=== PATIENT | female | born 1955 | race Caucasian/White ===

== ENCOUNTER 2023-03-16 09:35 | Outpatient (CLI) | payer MEDICARE, SELFPAY ==
[2023-03-16 12:51] LABS: Alanine Aminotransferase 18 U/L (6-35); Albumin Level 4.6 g/dL (3.5-5.1); Alkaline Phosphatase 98 U/L (38-126); Anion Gap 9 mmol/L (8-16); Aspartate Amino Transferase 34 U/L (14-36); Bilirubin,Total 0.9 mg/dL (0.2-1.3); Blood Urea Nitrogen 19 mg/dL (7-17); Calcium 9.2 mg/dL (8.4-10.2); Carbon Dioxide 29 mmol/L (22-30); Chloride 97 mmol/L (98-107); Cholesterol 216 mg/dL (0-200); Estimated Glomerular Filt Rate > 60; Glucose 87 mg/dL (65-110); HDL Direct 49 mg/dL; Potassium 4.1 mmol/L (3.4-5.0); Sodium 135 mmol/L (137-145); Triglycerides 193 mg/dL (<150)
[2023-03-16 13:02] LABS: LDL Cholesterol Direct 110 mg/dL
== END 2023-03-16 09:36 | disposition home or self-care (01) ==
LOC: ANHGOSHLAB 09:37
PROVIDERS: PCP Family Medicine; Visit Provider Family Medicine
DX: E78.5 Hyperlipidemia, unspecified (principal); I10 Essential (primary) hypertension; Z13.29 Encounter for screening for other suspected endocrine disorder
CPT/HCPCS: 36415; 80053; 80061; 84443

== ENCOUNTER → 2023-10-11 10:53 | Outpatient (CLI) | payer MEDICARE, SELFPAY ==
--- NOTE | ~2023-10-11 | DEXA_ITS ---
Bone Density Report Name: ABDI PONCE Age: 67 Sex: Female Ethnicity: White Date of : 1955 Indication: osteopenia; height loss; postmenopausal Referring Provider: LAUREN MARTINEZ Study: Bone densitometry was performed. Exam Date: October 11, 2023 Accession number: [id number] Bone Density: Region BMD T-score Z-score Classification AP Spine (L1-L4) 0.877 -1.5 0.4 Osteopenia Femoral Neck (Left) 0.666 -1.6 0.0 Osteopenia Total Hip (Left) 0.769 -1.4 0.0 Osteopenia Femoral Neck (Right) 0.588 -2.4 -0.7 Osteopenia Total Hip (Right) 0.758 -1.5 -0.1 Osteopenia Total Hip Mean 0.764 -1.5 -0.1 Osteopenia World Health Organization criteria for BMD impression classify patients as: Normal (T-score at or above -1.0), Osteopenia (T-score between -1.0 and -2.5), or Osteoporosis (T-score at or below -2.5). 10-year Fracture Risk(1): Major Osteoporotic Fracture 13% Hip Fracture 2.7% Reported Risk Factors: [place] (), Neck BMD=0.588, BMI=26.5 (1) FRAX(R) Version 3.08. Fracture probability calculated for an untreated patient. Fracture probability may be lower if the patient has received treatment. Previous Exams: Region Exam Age BMD T-score BMD Change BMD Change Date g/cm2 vs Baseline vs Previous AP Spine(L1-L4) 10/11/2023 67 0.877 -1.5 0.019 0.019 06/05/2019 63 0.858 -1.7 Total Hip(Left) 10/11/2023 67 0.769 -1.4 -0.028* -0.028* 06/05/2019 63 0.798 -1.2 Total Hip(Right) 10/11/2023 67 0.758 -1.5 0.002 0.002 06/05/2019 63 0.757 -1.5 *Denotes significance at 95% confidence level, LSC for AP Spine = 0.022 g/cm2, LSC for Total Hip = 0.027 g/cm2 Clinical Information Provided by Patient: Has used the following medications: Calcium Patient maximum height was 61 Menopause Age: 50 No regular weight bearing exercise Does not regularly consume dairy products Drinks caffeinated beverages Onset of menses at age 15 Number of children 2 Impression: The patient has low bone mass, based on the Right Femoral Neck T-score. The patient has an estimated ten-year risk of hip fracture of 2.7% and an estimated ten-year risk of major fracture of 13%, based on the WHO FRAX algorithm. The BMD for the Total Hip(Left) decreased, changing by -0.028 since the last DXA exam. Discussion: BONE DENSITY IS LOW AT ONE OR MORE SKELETAL SITES. This patient's lowest T-score is low at one or more skele
== END ==
PROVIDERS: PCP Family Medicine; Visit Provider Family Medicine
DX: Z78.0 Asymptomatic menopausal state (principal); Z13.820 Encounter for screening for osteoporosis; M85.88 Other specified disorders of bone density and structure, other site; M85.852 Other specified disorders of bone density and structure, left thigh; M85.851 Other specified disorders of bone density and structure, right thigh
CPT/HCPCS: 77080

== ENCOUNTER 2024-03-14 08:30 | Outpatient (CLI) | payer MEDICARE, SELFPAY ==
[2024-03-15 00:17] LABS: Alanine Aminotransferase 18 U/L (6-35); Albumin Level 4.4 g/dL (3.5-5.1); Alkaline Phosphatase 86 U/L (38-126); Anion Gap 6 mmol/L (4-12); Aspartate Amino Transferase 28 U/L (14-36); Bilirubin,Total 0.7 mg/dL (0.2-1.3); Blood Urea Nitrogen 16 mg/dL (7-17); Calcium 8.7 mg/dL (8.4-10.2); Carbon Dioxide 27 mmol/L (22-30); Chloride 101 mmol/L (98-107); Cholesterol 189 mg/dL (0-200); Estimated Glomerular Filt Rate 55; Glucose 94 mg/dL (65-110); HDL Direct 45 mg/dL; Potassium 3.9 mmol/L (3.4-5.0); Sodium 134 mmol/L (137-145); Triglycerides 194 mg/dL (<150)
[2024-03-15 00:45] LABS: LDL Cholesterol Direct 101 mg/dL
== END 2024-03-14 08:31 | disposition home or self-care (01) ==
LOC: ANHGOSHLAB 08:31
PROVIDERS: PCP Family Medicine; Visit Provider Family Medicine
DX: E78.49 Other hyperlipidemia (principal); Z13.228 Encounter for screening for other metabolic disorders
CPT/HCPCS: 36415; 80053; 80061

== ENCOUNTER 2025-02-28 09:34 | Outpatient (CLI) | payer MEDICARE, SELFPAY ==
--- OUTSIDE RECORDS SUMMARY | 2025-02-28 09:39 | XMS_ITS | Clinical Summary ---
Author Organization [facility] Medical Office Building [address] [place] [id number] Care Team Providers Care Scow Hand Name Role Phone Jayden Lacy MD Unavailable Baudilio Blum MD Unavailable [phone] Amber Mehta MD Primary Care Provider [phone] Allergies No known active allergies Medications lisinopriL (PRINIVIL,ZESTRIL) 10 mg tabletIndications: hypertension Take 10 mg by mouth every morning 2 Active lovastatin (MEVACOR) 20 mg tabletIndications: hyperlipidemia Take 20 mg by mouth every morning 2 Active prednisoLONE acetate (PRED FORTE) 1 % ophthalmic suspension For upcoming procedure 3 Active hydroCHLOROthiazid e (HYDRODIURIL) 25 mg tabletIndications: Edema,hypertension Take 25 mg by mouth every morning Active aspirin 81 mg chewable tabletIndications: prevention of thrombosis Take 81 mg by mouth every other day Active olopatadine (PATADAY) 0.2 % ophthalmic solutionIndication s:Allergic Conjunctivitis Administer 1 drop into both eyes daily Active carboxymethylcellu lose (REFRESH LIQUIGEL) 1 % ophthalmic liquid gel drops Administer 1 drop into both eyes Active erythromycin (ILOTYCIN) ophthalmic ointment Place on incisions three times per day and in operative eye as needed. 3.5 g 3 3 Active Active Problems Problem Noted Date Diagnosed Date Loss of peripheral visual field, bilateral 11/17 Overview (11/17/2022): Added automatically from request for surgery [id number] Dermatochalasis of both upper eyelids 11/17/2022 Overview (11/17/2022): Added automatically from request for surgery [id number] Encounters Date Type Department Care Team Description 12/06/2024 11:41 AM LAMINATING MACHINE OPERATOR HELPER - 12/06/2024 11:59 PM LAMINATING MACHINE OPERATOR HELPER Hospital Encounter [facility] Medical Office Bldg 1 [facility] [address] [facility] [address] [place] [address] Screening mammogram, encounter for Discharge Disposition: Discharge to home or self care from Last 3 Months Surgical History Surgery Date Site/Laterality Comments SECTION 1983 & 1989 COLONOSCOPY 10/09/2021 - 10/08/2022 Medical History Medical History Date Comments Hypertension Dxd 2007 Hyperlipidemia Treated with sta tin Family History Medical History Relation Name Comments Anesthesia problems Neg Hx Social History Tobacco Use Types Packs/Day Years Used Date Smoking Tobacco: Never Smokeless Tobacco: Never Tobacco Cessation:Counseling Given: Not Answered AUDIT-C Answer Date Recorded Q1: How often do you have a drink containing alc ohol? 2-3 times a week 12/09/2022 Q2: How many drinks containi ng alcohol do you have on a typical day when you are drinking? 3 or 4 12/09/2022 Q3: How often do you have si x or more drinks on one occasion? Monthly 12/09/2022 Personal Safety Answer Date Recorded Getting School Help Needed Denies 10/05 Comments No Sex and Gender Information Value Date Recorded Sex Assigned at Not on file Legal Sex Female 7:01 PM LAMINATING MACHINE OPERATOR HELPER Gender Identity Not on file Sexual Orientation Not on file Obstetrics History Para Term AB IAB SAB Ectopic Multiple Livin g Live Births 2 2 2 Date Outcome GA Total Labor Labor/2nd/3rd Weight Sex Type Anes PTL Agustina A1 A5 Name Clin Term Term Last Filed Vital Signs Vital Sign Reading Time Taken Comments Blood Pressure 131/65 12/09/2022 12:15 PM LAMINATING MACHINE OPERATOR HELPER Pulse 75 12/09/2022 12:15 PM LAMINATING MACHINE OPERATOR HELPER Temperature 36.2 C (97.2 F) 12/09/2022 11:30 AM LAMINATING MACHINE OPERATOR HELPER Respiratory Rate 32 12/09/2022 12:15 PM LAMINATING MACHINE OPERATOR HELPER Oxygen Saturation 100% 12/09/2022 12:15 PM LAMINATING MACHINE OPERATOR HELPER Inhaled Oxygen Concentration - - Weight 59 kg (130 lb) 11/18/2022 9:20 AM LAMINATING MACHINE OPERATOR HELPER Height 152.4 cm (5') 11/18/2022 9:20 AM LAMINATING MACHINE OPERATOR HELPER Body Mass Index 25.39 11/18/2022 9:20 AM LAMINATING MACHINE OPERATOR HELPER Plan of Treatment Health Maintenance Due Date Last Done Comments Colon Cancer Screening-Colonoscopy 1955 Depression Screening 1955 Hepatitis C Screening 1955 Osteoporosis Screening-Bone Density Scan 1955 Hepatitis B Screening 12/12/1973 Well Visit 65+ 12/12/2020 Fall Risk Assessment 12/10/2023 12/09/2022 Covid-19 Vaccine (2023-2 5 season) 2024 06/28/2023, 07/11/2022, 02/15/2022, Additional history exists Influenza Vaccine (Season Ended) 2025 06/30/2023, 07/11/2022, 07/12/2021, Additional history exists Breast Cancer Screening-Mammogram 12/06/2025 12/06/2024, 10/12/2023, 10/11/2022, Additional history exists DTaP/Tdap/Td Vaccine (2 - Td or Tdap) 04/26/2033 04/26/2023 Zoster Vaccine Completed 10/21/2019, 07/19/2019 Pneumococcal vaccine 65+ Completed 10/17/2022, 01/2021 Procedures Procedure Name Priority Date/Time Associated Diagnosis Comments SCREENING MAMMOGRAM BILATERAL W VIC Schedule Routine, Read Routine (OP Routine) 12/06/2024 12:07 PM LAMINATING MACHINE OPERATOR HELPER Screening mammogram, encounter for from Last 3 Months Results * Screening Mammogram Bilateral W Vic (12/06/2024 12:07 PM LAMINATING MACHINE OPERATOR HELPER) Anatomical Region Laterality Modality Breast Bilateral Mammography Impressions 12/06/2024 12:37 PM LAMINATING MACHINE OPERATOR HELPER BI-RADS ATLAS category (overall): 1 - Negative There is no mammographic evidence of malignancy. A 1 year screening mammogram is recommended. The patient has been or will be contacted. We recommend annual screening mammography for women at average risk of breast cancer beginning at age 40, based on guidelines of the [place] [employer] (ACR Practice Parameter for the Performance of Screening and Diagnostic Mammography) and [employer]. For women with and elevated risk of breast cancer, please refer to the ACR Practice Parameter for specific screening recommendations. The patient will be entered into a reminder system with a target due date of 1 year for her next screening exam. Narrative 12/06/2024 12:37 PM LAMINATING MACHINE OPERATOR HELPER Screening Mammogram Bilateral W Vic: 12/06/24 The study was acquired using full field digital technology and interpreted from soft copy. 2D digital mammographic views, as well as 3D digital tomosynthesis were performed in the CC and MLO projections. CLINICAL: Screening mammogram, encounter for. No relevant medical history has been documented for this patient. No known family history of breast cancer. COMPARISONS: 10/12/2023 Screening Mammogram Bilateral W Vic 10/11/2022 Screening Mammogram Bilateral W Vic 07/13/2021 Screening Mammogram Bilateral W Vic BREAST TISSUE: The breasts are heterogeneously dense, which may obscure small masses. FINDINGS: No suspicious masses, suspicious calcifications, or other suspicious findings are seen within either breast. There has been no suspicious change. us Self Screening Mammogram IMG MAMMO PROCEDURES Fi nal Result from Last 3 Months Insurance MEDICARE [facility] MEDICARE [facility] Care Teams Scow Hand Relationship Specialty Start Date End Date Amber Mehta MD [address] [place] [address] PCP - General Family Medicine 10/10/24 Jayden Lacy MD [address] [place] [address] Referring Physician Obstetrics and Gynecology 10/11/22 Baudilio Blum MD [address] DEPT OPHTHALMOLOGY, [place] [address] Surgeon Ophthalmology 12/09/22
--- OUTSIDE RECORDS SUMMARY | 2025-02-28 09:39 | XMS_ITS | Encounter Summary ---
Author Organization [facility] Address [address] [facility] [place] [address] Care Team Providers Care Director Of Software Engineering Name Role Phone Unavailable Primary Care Provider Unavailabl e Encounter Details Date Type Department Care Team (Late st Contact Info) Description 08/26/2024 Lab Requisition [facility] - DermPath Lab [address] [facility] [place] [phone] Cristela Cortez DO [address] [facility] [address] [place] [address] Social History Tobacco Use Types Packs/Day Years Used Date Smoking Tobacco: Never Assessed Comments Unknown Sex and Gender Information Value Date Recorded Sex Assigned at Not on file Legal Sex Female 10:07 AM CDT Gender Identity Not on file Sexual Orientation Not on file documented as of this encounter Plan of Treatment Not on file documented as of this encounter Procedures Procedure Name Priority Date/Time Associated Diagnosis Comments DERMATOPATHOLOGY Routine 08/26/2024 8:55 AM GOLF ST[employer]TER AND RANGER documented in this encounter Results * DERMATOPATHOLOGY (08/26/2024 8:55 AM [employer]OLF [employer]TER AND RANGER) Case Report Dermatopathology Report Case: [id number] Authorizing Provider: Cristela Cortez DO Collected: 08/26/2024 08:55 AM Ordering Location: [facility] - Received: 08/26/2024 03:28 PM DermPath Lab Pathologist: Vivi Rodriguez MD Specimen: Skin, right upper back 12:36 PM [facility] DERMATOPATHOLOGY LABORATORY Final Diagnosis Specimen A. SKIN, right upper back: LICHEN PLANUS-LIKE KERATOSIS (BENIGN LICHENOID KERATOSIS) (L82.1) 12:36 PM [facility] DERMATOPATHOLOGY LABORATORY at [address] [facility] Clinical History R/O NMSC 12:36 PM [facility] DERMATOPATHOLOGY LABORATORY Gross Description Specimen A: Received is one formalin filled container labeled with the patient's name and designated right upper back. The specimen consists of a shave biopsy measuring 6x5x1 mm. Jar 0. 12:36 PM [facility] DERMATOPATHOLOGY LABORATORY Microscopic Description Specimen A. SKIN, right upper back: The epidermis is mildly acanthotic. There is a lichenoid infiltrate with vacuolar changes of basilar keratinocytes and scattered necrotic keratinocytes. 12:36 PM [facility] DERMATOPATHOLOGY LABORATORY Disclaimer An external and internal positive and negative controls are appropriate for the histochemical, immunohistochemical and immunofluorescence stain(s) in this case (if any), except where stated explicitly. The performance characteristics of the stain(s) cited in this report were developed and its performance characteristic determined by the Dermatopathology Laboratory at [facility], directed by Dr. Juana Keen. These tests need not be, and therefore are not, approved by the [place] Food and Drug Administration. The tests are used for clinical purposes. Billing Codes Specimen Charges Stain Charges 80606 1 12:36 PM [facility] DERMATOPATHOLOGY LABORATORY Embedded Images 12:36 PM [facility] DERMATOPATHOLOGY LABORATORY Pathology/Cytolo gy TISSUE SPECIMEN FROM SKIN / Unknown 08/26/2024 8:55 AM [employer] 08/26/2024 3:28 PM [employer] Cristela Cortez DO LAB - PATHOLOGY/CYTOLOGY ORDERABLES Final Result DERMATOPATHOLOGY LABORATORY [facility] - Department of Dermatology [address] [place] [address], [facility] [phone] documented in this encounter Visit Diagnoses Not on filedocumented in this encounter
--- OUTSIDE RECORDS SUMMARY | 2025-02-28 09:39 | XMS_ITS | Referral Summary ---
Author Organization [facility] Medical Office Building 1 Address [facility] [place] [address] Care Team Providers Care Social Security Assessor Name Role Phone Jayden Lacy MD Unavailable Baudilio Blum MD Unavailable Amber Mehta MD Primary Care Provider [phone] Encounters Date Type Department Care Team Description 12/06/2024 11:41 AM PIPELINES SUPERINTENDENT - 12/06/2024 11:59 PM [facility] Hospital Encounter [facility] Medical Office Bldg 1 [facility] [address] [address] Screening mammogram, encounter for Discharge Disposition: Discharge to home or self care from Last 3 Months Allergies No known active allergies Medications lisinopriL [...] (11/17/2022): Added automatically from request for surgery [id number] Dermatochalasis of both upper eyelids 11/17/2022 Overview (11/17/2022): Added automatically from request for surgery [id number] Social History Tobacco Use Types Packs/Day Years [...] on file Legal Sex Female 7:01 PM PIPELINES SUPERINTENDENT Gender Identity Not on file Sexual Orientation Not on file Last Filed Vital Signs Vital Sign Reading Time Taken Comments Blood Pressure 131/65 12/09/2022 12:15 PM PIPELINES SUPERINTENDENT Pulse 75 12/09/2022 12:15 PM PIPELINES SUPERINTENDENT Temperature 36.2 C (97.2 F) 12/09/2022 11:30 AM PIPELINES SUPERINTENDENT Respiratory Rate 32 12/09/2022 12:15 PM PIPELINES SUPERINTENDENT Oxygen Saturation 100% 12/09/2022 12:15 PM PIPELINES SUPERINTENDENT Inhaled Oxygen Concentration - - Weight 59 kg (130 lb) 11/18/2022 9:20 AM PIPELINES SUPERINTENDENT Height 152.4 cm (5') 11/18/2022 9:20 AM PIPELINES SUPERINTENDENT Body Mass Index 25.39 11/18/2022 9:20 AM PIPELINES SUPERINTENDENT Plan of Treatment Not on file Procedures Procedure Name Priority Date/Time Associated Diagnosis Comments SCREENING MAMMOGRAM BILATERAL W VIC Schedule Routine, Read Routine (OP Routine) 12/06/2024 12:07 PM PIPELINES SUPERINTENDENT Screening mammogram, encounter for from Last 3 Months Results * Screening Mammogram Bilateral W Vic (12/06/2024 12:07 PM PIPELINES SUPERINTENDENT) Anatomical Region Laterality Modality Breast Bilateral Mammography Impressions 12/06/2024 12:37 PM PIPELINES SUPERINTENDENT BI-RADS ATLAS category (overall): 1 - Negative There is no mammographic evidence of malignancy. A 1 year screening mammogram is recommended. The patient has been or will be contacted. We recommend annual screening mammography for women at average risk of breast cancer beginning at age 40, based on guidelines of the [employer] (ACR Practice Parameter for the Performance of Screening and Diagnostic Mammography) and [employer]. For women with and elevated risk of breast cancer, please refer to the ACR Practice Parameter for specific screening recommendations. The patient will be entered into a reminder system with a target due date of 1 year for her next screening exam. Narrative 12/06/2024 12:37 PM PIPELINES SUPERINTENDENT Screening Mammogram Bilateral W Vic: 12/06/24 The [...] Result from Last 3 Months Insurance MEDICARE [facility] MEDICARE [facility] Care Teams Social Security Assessor Relationship Specialty Start Date End Date Amber Mehta MD [address] [place] [address] PCP - General Family Medicine 10/10/24 Jayden Lacy MD [address] [facility] [address] [place] [address] Referring Physician Obstetrics and Gynecology 10/11/22 Baudilio Blum MD [address] [facility] [address] DEPT OPHTHALMOLOGY, [facility] [address] [place] [address] Surgeon Ophthalmology 12/09/22
--- OUTSIDE RECORDS SUMMARY | 2025-02-28 09:39 | XMS_ITS | Clinical Summary ---
Author Organization [facility] Care Team Providers Care Hoop Punch Operator Helper Name Role Phone Unavailable Primary Care Provider Unavailabl e Social History Tobacco Use Types Packs/Day Years Used Date Smoking Tobacco: Never Assessed Comments Unknown Sex and Gender Information Value Date Recorded Sex Assigned at Not on file Legal Sex Female 11:52 AM CDT Gender Identity Not on file Sexual Orientation Not on file Plan of Treatment Health Maintenance Due Date Last Done Comments DEXA Bone Density 1955 Hepatitis C Virus (HCV) Screening 1955 TdaP Immunization 1955 Colonoscopy 12/12/2000 Colorectal Cancer Screening 12/12/2000 Cologuard 12/12/2005 Immunochemical Fecal Occult Blood 12/12/2005 Mammogram 12/12/2005 Pneumococcal Immunization (50+ years) (1 of 1 - PCV) 12/12/2005 Influenza Immunization (#1) 06/09/202404/2020, 07/19/2019, 07/24/2018, Additional history exists SARS-COV-2 Immunization ( season) 2024 12/30/2020, 12/02/2020 Respiratory Syncytial Virus (RSV) Immunization (Adult) (1 - 1-dose 75+ series) 12/12/2030 Zoster Immunization Completed 10/21/2019, 9 Hepatitis B Immunization Aged Out No longer eligible based on patient's age to complete this topic Meningococcal Immunization (ACWY) Aged Out No longer eligible based on patient's age to complete this topic Rotavirus Immunization Aged Out No lo nger eligible based on patient's age to complete this topic
--- OUTSIDE RECORDS SUMMARY | 2025-02-28 09:39 | XMS_ITS | Encounter Summary ---
Author Organization [facility] Address [address] [place] [address] Care Team Providers Care Emergency Technician Name Role Phone Unavailable Primary Care Provider Unavailabl e Encounter Details Date Type Department Care Team (Late st Contact Info) Description 08/10/2023 Lab Requisition [facility] - DermPath Lab [address] [facility] [facility] [place] [address] Cristela Cortez DO [address] [facility] [address] [place] [address] Social History Tobacco Use Types Packs/Day Years [...] Priority Date/Time Associated Diagnosis Comments DERMATOPATHOLOGY Routine 08/10/2023 9:15 AM CDT documented in this encounter Results * DERMATOPATHOLOGY (08/10/2023 9:15 AM CDT) Case Report Dermatopathology Report Case: [id number] Authorizing Provider: Cristela Cortez DO Collected: 08/10/2023 09:15 AM Ordering Location: [facility] DermPath Lab Received: 08/11/2023 01:24 PM Pathologist: Vielka Sepulveda MD Specimen: Skin, right chest 3 1:06 PM [facility] DERMATOPATHOLOGY LABORATORY Final Diagnosis Specimen A. SKIN, right chest: LICHEN PLANUS-LIKE KERATOSIS (BENIGN LICHENOID KERATOSIS) (L82.1) EPIDERMAL NECROSIS SUGGESTIVE OF EXCORIATION (L98.499) 3 1:06 PM [facility] DERMATOPATHOLOGY LABORATORY at [address] [facility] Clinical History LpLK R/O NMSC 3 1:06 PM [facility] DERMATOPATHOLOGY LABORATORY Gross Description Specimen A: Received is one formalin filled container labeled with the patient's name and designated right chest. The specimen consists of a shave biopsy measuring 6x5x1 mm. Jar 0. 3 1:06 PM [facility] DERMATOPATHOLOGY LABORATORY Microscopic Description Specimen A. SKIN, right chest: The epidermis is mildly acanthotic. There is a lichenoid infiltrate with vacuolar changes of basilar keratinocytes and scattered necrotic keratinocytes. The epidermis is focally necrotic and covered with a scale-crust. There is fibrin at the base. 3 1:06 PM [facility] DERMATOPATHOLOGY LABORATORY Disclaimer An external and internal positive and negative controls are appropriate for the histochemical, immunohistochemical and immunofluorescence stain(s) in this case (if any), except where stated explicitly. The performance characteristics of the stain(s) cited in this report were developed and its performance characteristic determined by the Dermatopathology Laboratory at [facility], directed by Dr. Juana Keen. These tests need not be, and therefore are not, approved by the [place] Food and Drug Administration. The tests are used for clinical purposes. Billing Codes Specimen Charges Stain Charges 33833 1 3 1:06 PM [facility] DERMATOPATHOLOGY LABORATORY Embedded Images 3 1:06 PM [facility] DERMATOPATHOLOGY LABORATORY Pathology/Cytolo gy TISSUE SPECIMEN FROM SKIN / Unknown 08/10/2023 9:15 AM CDT 08/11/2023 1:24 PM CDT us Cristela Cortez DO LAB - PATHOLOGY/CYTOLOGY ORDERABLES Final Result DERMATOPATHOLOGY LABORATORY [facility] - Department of Dermatology [address], [address] [phone] documented in this encounter Visit Diagnoses Not on filedocumented in this encounter
--- OUTSIDE RECORDS SUMMARY | 2025-02-28 09:39 | XMS_ITS | Clinical Summary ---
Author Organization [facility] Address [address] [facility] [place] [address] Care Team Providers Care Campaign Management Senior Manager Name Role Phone Unavailable Primary Care Provider Unavailabl e Source Comments [facility],non-owned Affiliates and Associated Physician Practices is amultiple site organization consisting of ambulatory clinics and hospital sitesin [place], [place], [place] and [place]. This disclosure is being madepursuant to the Care Everywhere program and may not contain all information available regarding this patient. Last updated 18.[facility] Encounters Date Type Department Care Team Description 02/25/2025 Lab Requisition [facility] - DermPath Lab [address] [place] [address] Cristela Cortez DO from Last 3 Months Social History Tobacco Use Types Packs/Day Years Used Date Smoking Tobacco: Never Assessed Comments Unknown Sex and Gender Information Value Date Recorded Sex Assigned at Not on file Legal Sex Female 10:07 AM CDT Gender Identity Not on file Sexual Orientation Not on file Plan of Treatment Health Maintenance Due Date Last Done Comments BONE DENSITY TESTING 1955 COLOGUARD (AGES 45-75) - COL ON CA SCREENING 1955 COLON MONITORING 1955 COLONOSCOPY - COLON CA SCREENING 1955 CT COLONOGRAPHY - COLON CA SCREENING 1955 Colorectal Cancer Screening 1955 FIT - COLON CA SCREENING 1955 FLEX SIG - COLON CA SCREENING 1955 LIPID TESTING 1955 MAMMOGRAM 1955 MEDICARE AWV 12 MONTHS 1955 HEPATITIS C SCREENING 12/08/1973 DTAP/TDAP/TD VACCINES (1 - Tdap) 12/12/1974 PNEUMOCOCCAL VACCINE 50+ (1 of 1 - PCV) 12/12/2005 ZOSTER VACCINE (1 of 2) 12/12/2005 COVID-19 VACCINE (2023-2 5 season) 2024 DEPRESSION SCREENING 10/09/2024 INFLUENZA VACCINE (Season Ended) 2025 Respiratory Syncytial Virus (RSV) Vaccine Pt: or over 60 yrs (1 - 1-dose 75+ series) 12/12/2030 HEPATITIS B VACCINE Aged Out No longe r eligible based on patient's age to complete this topic HIB VACCINE Aged Out No longer eligi ble based on patient's age to complete this topic HPV VACCINE Aged Out No longer eligi ble based on patient's age to complete this topic MENINGOCOCCAL (Group B) VACC INE SHARED DECISION-MAKING Aged Out No longer eligibl e based on patient's age to complete this topic MENINGOCOCCAL GROUPS A/C/Y/W VACCINE Aged Out No longer eligible b ased on patient's age to complete this topic Procedures Procedure Name Priority Date/Time Associated Diagnosis Comments DERMATOPATHOLOGY Routine 02/25/2025 9:07 AM CDT from Last 3 Months Results * DERMATOPATHOLOGY (02/25/2025 9:07 AM CDT) Case Report Dermatopathology Report Case: [id number] Authorizing Provider: Cristela Cortez DO Collected: 02/25/2025 09:07 AM Ordering Location: [facility] - Received: 02/26/2025 07:11 AM DermPath Lab Pathologist: Fadumo Sepulveda MD Specimen: Skin, left upper arm 3:34 PM CDT DERMATOPATHOLOGY LABORATORY Final Diagnosis Specimen A. 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 The specimen consists of a shave biopsy measuring 10x7x1 mm. Jar 0. 05/22/202 5 3:34 PM CDT DERMATOPATHOLOGY LABORATORY Microscopic Description Specimen A. SKIN, left upper arm: The epidermis shows parakeratosis, full thickness disorderly maturation of keratinocytes, mitoses at different levels, and dyskeratotic cells. 5 3:34 PM CDT DERMATOPATHOLOGY LABORATORY Disclaimer An external and internal positive and negative controls are appropriate for the histochemical, immunohistochemical and immunofluorescence stain(s) in this case (if any), except where stated explicitly. The performance characteristics of the stain(s) cited in this report were developed and its performance characteristic determined by the Dermatopathology Laboratory at [facility], directed by Dr. Juana Keen. These tests need not be, and therefore are not, approved by the [place] Food and Drug Administration. The tests are used for clinical purposes. Billing Codes Specimen Charges Stain Charges 25825 1 5 3:34 PM CDT DERMATOPATHOLOGY LABORATORY Embedded Images 5 3:34 PM CDT DERMATOPATHOLOGY LABORATORY Pathology/Cytolo gy TISSUE SPECIMEN FROM SKIN / Unknown 02/25/2025 9:07 AM CDT 02/26/2025 7:11 AM CDT us Cristela Cortez DO LAB - PATHOLOGY/CYTOLOGY ORDERABLES Final Result DERMATOPATHOLOGY LABORATORY [facility] - Department of Dermatology Formerly [facility] Medicine [address] [place] [address], [address]rd [place] [address], [facility] [phone] from Last 3 Months Insurance MEDICARE [facility] MEDICARE [facility]
--- OUTSIDE RECORDS SUMMARY | 2025-02-28 09:39 | XMS_ITS | Encounter Summary ---
Author Organization [facility] Address [address] [facility] [place] [address] Care Team Providers Care Boat Buffer Plastic Name Role Phone Unavailable Primary Care Provider Unavailabl e Encounter Details Date Type Department Care Team (Late st Contact Info) Description 02/25/2025 Lab Requisition [facility] - DermPath Lab [address] [facility], [facility] [place] [id number] Cristela Cortez DO [address] [facility] [address] [place] [address] Social History Tobacco Use Types Packs/Day Years [...] Comments DERMATOPATHOLOGY Routine 02/25/2025 9:07 AM CDT documented in this encounter Results * DERMATOPATHOLOGY (02/25/2025 9:07 AM CDT) Case Report Dermatopathology Report Case: [id number] Authorizing Provider: Cristela Cortez DO Collected: 02/25/2025 09:07 AM Ordering Location: [facility]ician [facility] - Received: 02/26/2025 07:11 AM DermPath Lab Pathologist: Fadumo Sepulveda MD Specimen: Skin, left upper arm 3:34 PM CDT DERMATOPATHOLOGY LABORATORY Final Diagnosis Specimen A. SKIN, left upper arm: SQUAMOUS CELL CARCINOMA IN SITU (GARCIA'S DISEASE) (D04.62) 5 3:34 PM CDT DERMATOPATHOLOGY LABORATORY at 1534 CDT Clinical History R/O NMSC 3:34 PM CDT DERMATOPATHOLOGY LABORATORY Gross Description Specimen A: Received is one formalin filled container labeled with the patient's name and designated left upper arm. The specimen consists of a shave biopsy measuring 10x7x1 mm. Jar 0. 3:34 PM CDT DERMATOPATHOLOGY LABORATORY Microscopic Description Specimen A. SKIN, left upper arm: The epidermis shows parakeratosis, full thickness disorderly maturation of keratinocytes, mitoses at different levels, and dyskeratotic cells. 3:34 PM CDT DERMATOPATHOLOGY LABORATORY Disclaimer An external and internal positive and negative controls are appropriate for the histochemical, immunohistochemical and immunofluorescence stain(s) in this case (if any), except where stated explicitly. The performance characteristics of the stain(s) cited in this report were developed and its performance characteristic determined by the Dermatopathology Laboratory at [facility], directed by Dr. Juana Keen. These tests need not be, and therefore are not, approved by the [place] Food and Drug Administration. The tests are used for clinical purposes. Billing Codes Specimen Charges Stain Charges 76828 1 3:34 PM CDT DERMATOPATHOLOGY LABORATORY Embedded Images 3:34 PM CDT DERMATOPATHOLOGY LABORATORY Pathology/Cytolo gy TISSUE SPECIMEN FROM SKIN / Unknown 02/25/2025 9:07 AM CDT 02/26/2025 7:11 AM CDT Cristela Cortez DO LAB - PATHOLOGY/CYTOLOGY ORDERABLES Final Result DERMATOPATHOLOGY LABORATORY [facility] - Department of Dermatology [address], [address] [phone] documented in this encounter Visit Diagnoses Not on filedocumented in this encounter
--- OUTSIDE RECORDS SUMMARY | 2025-02-28 09:39 | XMS_ITS | Encounter Summary ---
Author Organization [facility] Address [address] [facility] [place] [address] Care Team Providers Care Assembler Erector Name Role Phone Unavailable Primary Care Provider Unavailabl e Encounter Details Date Type Department Care Team (Late st Contact Info) Description 02/28/2023 Lab Requisition [facility] - DermPath Lab [address] [facility], [place] [address] Cristela Cortez DO [address] [facility] [address] [place] [address] Social History Tobacco Use Types Packs/Day Years [...] Priority Date/Time Associated Diagnosis Comments DERMATOPATHOLOGY Routine 02/28/2023 4:21 PM CDT documented in this encounter Results * DERMATOPATHOLOGY (02/28/2023 4:21 PM CDT) Case Report Dermatopathology Report Case: [id number] Authorizing Provider: Cristela Cortez DO Collected: 02/28/2023 04:21 PM Ordering Location: [facility] DermPath Lab Received: 03/02/2023 06:26 AM Pathologist: Vielka Sepulveda MD Specimens: A) - Skin, right chest B) - Skin, left forearm 12:59 PM CDT DERMATOPATHOLOGY LABORATORY Final Diagnosis Specimen A. SKIN, right chest: DERMAL SCAR RESIDUAL SQUAMOUS CELL CARCINOMA NOT IDENTIFIED (L90.5) Specimen B. SKIN, left forearm: LICHEN PLANUS-LIKE KERATOSIS (BENIGN LICHENOID KERATOSIS) (L82.1) 3 12:59 PM CDT DERMATOPATHOLOGY LABORATORY at 1259 CDT Clinical History A: SCCIS Bx proven B: R/O NMSC 3 12:59 PM CDT DERMATOPATHOLOGY LABORATORY Gross Description Specimen A: Received is one formalin filled container labeled with the patient's name and designated right chest. The specimen consists of a non-oriented ellipse of skin measuring 38t17c1 mm. The epidermal surface is unremarkable. The margin is inked green. The 12 o'clock and 6 o'clock tips are submitted in cassette 1. The remainder of the ellipse is serially sectioned and submitted in cassette 2. Jar 0. Specimen B: Received is one formalin filled container labeled with the patient's name and designated left forearm. The specimen consists of a shave biopsy measuring 7x5x1 mm. Jar 0. 3 12:59 PM CDT DERMATOPATHOLOGY LABORATORY Microscopic Description Specimen A. SKIN, right chest: There are fibroblasts and collagen bundles oriented parallel to the skin surface. There are elongated blood vessels, some of which are oriented perpendicular to the skin surface. No residual squamous cell carcinoma is identified. Specimen B. SKIN, left forearm: The epidermis is mildly acanthotic. There is a lichenoid infiltrate with vacuolar changes of basilar keratinocytes and scattered necrotic keratinocytes. 3 12:59 PM CDT DERMATOPATHOLOGY LABORATORY Disclaimer An external and internal positive and negative controls are appropriate for the histochemical, immunohistochemical and immunofluorescence stain(s) in this case (if any), except where stated explicitly. The performance characteristics of the stain(s) cited in this report were developed and its performance characteristic determined by the Dermatopathology Laboratory at [facility], directed by Dr. Juana Keen. These tests need not be, and therefore are not, approved by the [place] Food and Drug Administration. The tests are used for clinical purposes. Billing Codes Specimen Charges Stain Charges 21528 04807 1 1 3 12:59 PM CDT DERMATOPATHOLOGY LABORATORY Embedded Images 3 12:59 PM CDT DERMATOPATHOLOGY LABORATORY Pathology/Cytology TISSUE SPECIMEN FROM SKIN / Unknown 02/28/2023 4:21 PM CDT 03/02/2023 6:26 AM CDT Miscellaneous samples (specimen) TISSUE SPECIMEN FROM SKIN / Unknown 02/28/2023 4:21 PM CDT 03/02/2023 6:26 AM CDT us Cristela Cortez DO LAB - PATHOLOGY/CYTOLOGY ORDERABLES Final Result DERMATOPATHOLOGY LABORATORY [facility] - Department of Dermatology [facility] Specialized Medicine [address] [place] [address], [address] [phone] documented in this encounter Visit Diagnoses Not on filedocumented in this encounter
--- OUTSIDE RECORDS SUMMARY | 2025-02-28 09:39 | XMS_ITS | Encounter Summary ---
Author Organization [facility] Address [address] [place] [address] Care Team Providers Care Chronic Disease Manager Name Role Phone Unavailable Primary Care Provider Unavailabl e Encounter Details Date Type Department Care Team (Late st Contact Info) Description 02/14/2019 Lab Requisition [facility] Care DermPath Lab [address] [facility], [place] [phone] Cristela Cortez DO [address] [facility] 3 [place] [address] Social History Tobacco Use Types Packs/Day Years [...] Priority Date/Time Associated Diagnosis Comments DERMATOPATHOLOGY Routine 02/13/2019 12:0 0 AM CDT documented in this encounter Results * DERMATOPATHOLOGY (02/13/2019 12:00 AM CDT) Case Report Dermatopathology Report Case: [id number] Authorizing Provider: Cristela Cortez DO Collected: 02/13/2019 12:00 AM Pathologist: Heather Cifuentes MD Received: 02/14/2019 07:44 AM Specimens: A) - Skin, right chest B) - Skin, right breast C) - Skin, right forearm 9 12:38 PM CDT DERMATOPATHOLOGY LABORATORY Final Diagnosis Specimen A. SKIN, right chest: LICHEN PLANUS-LIKE KERATOSIS (BENIGN LICHENOID KERATOSIS), RESOLVING (L82.1) Specimen B. SKIN, right breast: LICHEN PLANUS-LIKE KERATOSIS (BENIGN LICHENOID KERATOSIS) (L82.1) Specimen C. 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 Non-healing. 12:38 PM CDT DERMATOPATHOLOGY LABORATORY Gross Description Specimen A: Received is one formalin filled container labeled with the patient's name and designated right chest. The specimen consists of a shave measuring 90a4m0nj. Jar 0. Specimen B: Received is one formalin filled container labeled with the patient's name and designated right breast. The specimen consists of a shave measuring 6i8v3ka. Jar 0. Specimen C: Received is one formalin filled container labeled with the patient's name and designated right forearm. The specimen consists of a shave measuring 8h9c9ul. Jar 0. 12:38 PM CDT DERMATOPATHOLOGY LABORATORY Microscopic Description Specimen A. SKIN, right chest: The epidermis is mildly acanthotic. There is a focal lichenoid infiltrate with vacuolar changes of basilar keratinocytes and scattered necrotic keratinocytes. Specimen B. SKIN, right breast: The epidermis is mildly acanthotic. There is a lichenoid infiltrate with vacuolar changes of basilar keratinocytes and scattered necrotic keratinocytes. Specimen C. SKIN, right forearm: There is focal parakeratosis. The lower half of the epidermis shows disorderly maturation of keratinocytes with nuclear pleomorphism. There is prominent melanin pigmentation in the keratinocytes comprising the lesion. The dermis shows a band-like, chronic inflammatory infiltrate with occasional apoptotic keratinocytes and some basal vacuolar alteration. 12:38 PM CDT DERMATOPATHOLOGY LABORATORY Disclaimer An external and internal positive and negative controls are appropriate for the histochemical, immunohistochemical and immunofluorescence stain(s) in this case (if any), except where stated explicitly. The performance characteristics of the stain(s) cited in this report were developed and its performance characteristic determined by the Dermatopathology Laboratory at [facility], directed by Dr. Juana Keen. These tests need not be, and therefore are not, approved by the [place] Food and Drug Administration. The tests are used for clinical purposes. Billing Codes Specimen Charges Stain Charges 49862 00791 63279 1 1 1 9 12:38 PM CDT DERMATOPATHOLOGY LABORATORY Embedded Images 9 12:38 PM CDT DERMATOPATHOLOGY LABORATORY Pathology/Cytology TISSUE SPECIMEN FROM SKIN / Unknown 02/13/2019 02/14/2019 7:44 AM CDT Miscellaneous samples (specimen) TISSUE SPECIMEN FROM SKIN / Unknown 02/13/2019 02/14/2019 7:44 AM CDT Miscellaneous samples (specimen) TISSUE SPECIMEN FROM SKIN / Unknown 02/13/2019 02/14/2019 7:44 AM CDT us Cristela Cortez DO LAB - PATHOLOGY/CYTOLOGY ORDERABLES Final Result DERMATOPATHOLOGY LABORATORY [facility] - Department of Dermatology [address] [facility], 5th Floor Lab [address] [phone] documented in this encounter Visit Diagnoses Not on filedocumented in this encounter
[2025-02-28 12:26] LABS: Basophils Percent Auto 0.4 % (0.2-1.2); Eosinophils Absolute Auto 0.4 K/mm3 (0-0.3); Eosinophils Percent Auto 5.1 % (0-4.4); Hematocrit 38.8 % (37.0-47.0); Hemoglobin 12.8 g/dL (12.0-15.0); Immature Granulocyte Absolute 0.03 K/mm3 (0.00-0.031); Immature Granulocyte Percent A 0.4 % (0-0.5); Lymphocytes Absolute Auto 1.94 K/mm3 (0.9-3.2); Lymphocytes Percent Auto 25.9 % (18.3-44.2); Mean Corpuscular Hemoglobin 29.8 pg (26-34); Mean Corpuscular Volume 90.2 fl (80-100); Mean Platelet Volume 11.3 fl (7.4-10.4); Monocytes Absolute Auto 0.8 K/mm3 (0.1-0.6); Neutrophils Absolute Auto 4.4 K/mm3 (1.3-6.7); Neutrophils Percent Auto 58.2 % (45.5-73.1); Platelet Count Result 209 k/mm3 (150-375); Red Cell Distribution Width 11.8 % (11.5-14.5); White Blood Count 7.5 K/mm3 (4.5-10.0)
[2025-02-28 12:45] LABS: Alanine Aminotransferase 18 U/L (6-35); Albumin Level 4.3 g/dL (3.5-5.1); Alkaline Phosphatase 90 U/L (38-126); Anion Gap 9 mmol/L (4-12); Aspartate Amino Transferase 42 U/L (14-36); Bilirubin,Total 0.9 mg/dL (0.2-1.3); Blood Urea Nitrogen 18 mg/dL (7-17); Carbon Dioxide 28 mmol/L (22-30); Chloride 97 mmol/L (98-107); Cholesterol 186 mg/dL (0-200); Estimated Glomerular Filt Rate 54; Glucose 80 mg/dL (65-110); HDL Direct 45 mg/dL; Potassium 3.8 mmol/L (3.4-5.0); Sodium 134 mmol/L (137-145); Triglycerides 137 mg/dL (<150)
[2025-02-28 12:57] LABS: LDL Cholesterol Direct 94 mg/dL
[2025-02-28 13:48] LABS: Vitamin D 25 Hydroxy 42.2 ng/mL
[2025-02-28 13:56] LABS: Iron 87 ug/dL (37-170)
[2025-02-28 14:05] LABS: Percent Iron Saturation 26 % (20-50)
== END 2025-02-28 09:35 | disposition home or self-care (01) ==
LOC: ANHGOSHLAB 09:36
PROVIDERS: PCP Family Medicine; Visit Provider Student in an Organized Health Care Education/Training Program
DX: E78.49 Other hyperlipidemia (principal); R53.83 Other fatigue; E55.9 Vitamin D deficiency, unspecified; I10 Essential (primary) hypertension
CPT/HCPCS: 36415; 80053; 80061; 82306; 83540; 83550; 84443; 85025

== ENCOUNTER 2025-05-08 09:45 | Outpatient (CLI) | payer MEDICARE, SELFPAY ==
--- OUTSIDE RECORDS SUMMARY | 2025-05-08 09:54 | XMS_ITS | Clinical Summary ---
Author Organization [facility] Address [address] [place] [address] Care Team Providers Care Automotive Sales Executive Name Role Phone Unavailable Primary Care Provider Unavailabl e Source Comments [facility],non-owned Affiliates and Associated Physician Practices is amultiple site organization consisting of ambulatory clinics and hospital sitesin [place], [place], [place] and [place]. This disclosure is being madepursuant to the Care Everywhere program and may not contain all information available regarding this patient. Last updated 18.[facility] Encounters Date Type Department Care Team Description 02/25/[address] [facility] - DermPath Lab [address] [place] [address] Cristela Cortez DO from Last 3 Months [...] season) 2024 DEPRESSION SCREENING 10/09/2024 INFLUENZA VACCINE (#1) 2025 Respiratory Syncytial Virus (RSV) Vaccine Pt: [...] AM CDT) Case Report Dermatopathology Report Case: [id number] Authorizing Provider: Cristela Cortez DO Collected: 02/25/2025 09:07 AM Ordering Location: [facility] - Received: 02/26/2025 07:11 AM [...] characteristic determined by the Dermatopathology Laboratory at [facility], directed by Dr. Juana Keen. These tests need not be, and therefore are not, approved by the [place] Food and Drug Administration. The tests are used for clinical purposes. Billing Codes Specimen Charges Stain Charges 47229 1 5 3:34 PM CDT DERMATOPATHOLOGY LABORATORY Embedded Images 5 3:34 PM CDT DERMATOPATHOLOGY LABORATORY Pathology/Cytolo gy TISSUE SPECIMEN FROM SKIN / Unknown 02/25/2025 9:07 AM CDT 02/26/2025 7:11 AM CDT us Cristela Cortez DO LAB - PATHOLOGY/CYTOLOGY ORDERABLES Final Result DERMATOPATHOLOGY LABORATORY [facility] - Department of Dermatology [facility] Medicine [address] [place] [address], [address]rd [place] [address], [facility] [phone] from Last [address] [facility]ICARE [facility]
--- OUTSIDE RECORDS SUMMARY | 2025-05-08 09:54 | XMS_ITS | Clinical Summary ---
Author Organization [facility] [address] [place] [address] Care Team Providers Care Tack Welder Name Role Phone Jayden Lacy MD Unavailable Baudilio Blum MD Unavailable Amber Mehta MD Primary Care Provider [phone] Allergies No known active allergies Medications lisinopriL [...] (11/17/2022): Added automatically from request for surgery [id number] Dermatochalasis of both upper eyelids 11/17/2022 Overview (11/17/2022): Added automatically from request for surgery [id number] Surgical History Surgery Date Site/Laterality Comments SECTION [...] on file Legal Sex Female 7:01 PM TAPPER HELPER Gender Identity Not on file Sexual Orientation Not on file Obstetrics History Para Term AB IAB SAB Ectopic Multiple Livin g Live Births 2 2 2 Date Outcome GA Total Labor Labor/2nd/3rd Weight Sex Type Anes PTL Agustina A1 A5 Name Clin Term Term Last Filed Vital Signs Vital Sign Reading Time Taken Comments Blood Pressure 131/65 12/09/2022 12:15 PM TAPPER HELPER Pulse 75 12/09/2022 12:15 PM TAPPER HELPER Temperature 36.2 C (97.2 F) 12/09/2022 11:30 AM TAPPER HELPER Respiratory Rate 32 12/09/2022 12:15 PM TAPPER HELPER Oxygen Saturation 100% 12/09/2022 12:15 PM TAPPER HELPER Inhaled Oxygen Concentration - - Weight 59 kg (130 lb) 11/18/2022 9:20 AM TAPPER HELPER Height 152.4 cm (5') 11/18/2022 9:20 AM TAPPER HELPER Body Mass Index 25.39 11/18/2022 9:20 AM TAPPER HELPER Plan of Treatment Health Maintenance Due Date Last Done Comments Colon Cancer Screening-Colonoscopy 1955 Depression Screening 1955 Hepatitis C Screening 1955 Osteoporosis Screening-Bone Density Scan 1955 Hepatitis B Screening 12/12/1973 Well Visit 65+ 12/12/2020 Fall Risk Assessment 12/10/2023 12/09/2022 Covid-19 Vaccine (2023-2 5 season) 2024 06/28/2023, 07/11/2022, 02/15/2022, Additional history exists Influenza Vaccine (#1) 2025 , 07/11/2022, 07/12/2021, Additional history exists Breast Cancer Screening-Mammogram 12/06/2025 12/06/2024, 10/12/2023, 10/11/2022, Additional history exists DTaP/Tdap/Td Vaccine (2 - Td or Tdap) 04/26/2033 04/26/2023 Zoster Vaccine Completed 10/21/2019, 07/19/2019 Pneumococcal vaccine 65+ Completed 10/17/2022, 01/2021 Procedures Procedure Name Priority Date/Time Associated Diagnosis Comments SCREENING MAMMOGRAM BILATERAL W VIC Schedule Routine, Read Routine (OP Routine) 12/06/2024 12:07 PM TAPPER HELPER Screening mammogram, encounter for from Last 3 Months or Most Recently Relevant to Health Maintenance Results * Screening Mammogram Bilateral W Vic (12/06/2024 12:07 PM TAPPER HELPER) Anatomical Region Laterality Modality Breast Bilateral Mammography Impressions 12/06/2024 12:37 PM TAPPER HELPER BI-RADS ATLAS category (overall): 1 - Negative There is no mammographic evidence of malignancy. A 1 year screening mammogram is recommended. The patient has been or will be contacted. We recommend annual screening mammography for women at average risk of breast cancer beginning at age 40, based on guidelines of the [employer] (ACR Practice Parameter for the Performance of Screening and Diagnostic Mammography) and [employer]. For women with and elevated risk of breast cancer, please refer to the ACR Practice Parameter for specific screening recommendations. The patient will be entered into a reminder system with a target due date of 1 year for her next screening exam. Narrative 12/06/2024 12:37 PM TAPPER HELPER Screening Mammogram Bilateral W Vic: 12/06/24 [...] Fi nal Result from Last 3 Months or Most Recently Relevant to Health Maintenance Insurance MEDICARE [facility] MEDICARE [facility] Care Teams Tack Welder Relationship Specialty Start Date End Date Amber Mehta MD [address] DEPT OPHTHALMOLOGY, [facility] [address] [place] [address] PCP - General Family Medicine 10/10/24 Jayden Lacy MD [address] [facility] [address] [place] [address] Referring Physician Obstetrics and Gynecology 10/11/22 Baudilio Blum MD [address] DEPT OPHTHALMOLOGY, [facility] [address] [place] [address] Surgeon Ophthalmology 12/09/22
--- OUTSIDE RECORDS SUMMARY | 2025-05-08 09:54 | XMS_ITS | Encounter Summary ---
Author Organization [facility] Address [address] [facility] [place] [address] Care Team Providers Care Gis Technician Name Role Phone Unavailable Primary Care Provider Unavailabl e Encounter Details Date Type Department Care Team (Late st Contact Info) Description 02/25/2025 Lab Requisition [facility] - DermPath Lab [address] [facility], [facility] [place] [phone] Cristela Cortez DO [address] [facility] 3 [place] [address] Social History Tobacco Use Types Packs/Day Years [...] AM CDT) Case Report Dermatopathology Report Case: [id number] Authorizing Provider: Cristela Cortez DO Collected: 02/25/2025 09:07 AM Ordering Location: [facility] Physician [facility] - Received: 02/26/2025 07:11 AM DermPath [...] characteristic determined by the Dermatopathology Laboratory at [facility], directed by Dr. Juana Keen. These tests need not be, and therefore are not, approved by the [place] Food and Drug Administration. The tests are used for clinical purposes. Billing Codes Specimen Charges Stain Charges 22671 1 3:34 PM CDT DERMATOPATHOLOGY LABORATORY Embedded Images 3:34 PM CDT DERMATOPATHOLOGY LABORATORY Pathology/Cytolo gy TISSUE SPECIMEN FROM SKIN / Unknown 02/25/2025 9:07 AM CDT 02/26/2025 7:11 AM CDT Cristela Cortez DO LAB - PATHOLOGY/CYTOLOGY ORDERABLES Final Result DERMATOPATHOLOGY LABORATORY [facility] - Department of Dermatology [address], [address] [phone] documented in this encounter Visit Diagnoses Not on filedocumented in this encounter
--- OUTSIDE RECORDS SUMMARY | 2025-05-08 09:54 | XMS_ITS | Encounter Summary ---
Author Organization [facility] Address [address] [facility] [place] [address] Care Team Providers Care Contact Person Name Role Phone Unavailable Primary Care Provider Unavailabl e Encounter Details Date Type Department Care Team (Late st Contact Info) Description 08/26/2024 Lab Requisition [facility] - DermPath Lab [address] [facility], [facility] [place] [phone] Cristela Cortez DO [address] [facility] 3 [place] [address] Social History Tobacco Use Types Packs/Day Years [...] Diagnosis Comments DERMATOPATHOLOGY Routine 08/26/2024 8:55 AM SPIRAL MACHINE OPERATOR documented in this encounter Results * DERMATOPATHOLOGY (08/26/2024 8:55 AM SPIRAL MACHINE OPERATOR) Case Report Dermatopathology Report Case: [id number] Authorizing Provider: Cristela Cortez DO Collected: 08/26/2024 08:55 AM Ordering Location: [facility] - Received: 08/26/2024 03:28 PM DermPath Lab Pathologist: Vivi Rodriguez MD Specimen: Skin, right upper back 12:36 PM SPIRAL MACHINE OPERATOR DERMATOPATHOLOGY LABORATORY Final Diagnosis Specimen A. SKIN, right upper back: LICHEN PLANUS-LIKE KERATOSIS (BENIGN LICHENOID KERATOSIS) (L82.1) 12:36 PM SPIRAL MACHINE OPERATOR DERMATOPATHOLOGY LABORATORY at 1236 SPIRAL MACHINE OPERATOR Clinical History R/O NMSC 12:36 PM [place] [...] characteristic determined by the Dermatopathology Laboratory at [facility], directed by Dr. Juana Keen. These tests need not be, and therefore are not, approved by the [place] Food and Drug Administration. The tests are used for clinical purposes. Billing Codes Specimen Charges Stain Charges 60940 1 12:36 PM [facility] DERMATOPATHOLOGY LABORATORY Embedded Images 12:36 PM [facility] DERMATOPATHOLOGY LABORATORY Pathology/Cytolo gy TISSUE SPECIMEN FROM SKIN / Unknown 08/26/2024 8:55 AM SPIRAL MACHINE OPERATOR 08/26/2024 3:28 PM SPIRAL MACHINE OPERATOR Cristela Cortez DO LAB - PATHOLOGY/CYTOLOGY ORDERABLES Final Result DERMATOPATHOLOGY LABORATORY [facility] - Department of Dermatology [address] [place] [address], [facility] [phone] documented in this encounter Visit Diagnoses Not on filedocumented in this encounter
--- OUTSIDE RECORDS SUMMARY | 2025-05-08 09:54 | XMS_ITS | Referral Summary ---
Author Organization [facility] [address] [place] [phone] Care Team Providers Care Office Copy Selector Name Role Phone Jayden Lacy MD Unavailable Baudilio Blum MD Unavailable [phone] Amber Mehta MD Primary Care Provider [phone] Allergies No known active allergies Medications lisinopriL [...] (11/17/2022): Added automatically from request for surgery [id number] Dermatochalasis of both upper eyelids 11/17/2022 Overview (11/17/2022): Added automatically from request for surgery [id number] Social History Tobacco Use Types Packs/Day Years [...] on file Legal Sex Female 7:01 PM DATA MANAGEMENT Gender Identity Not on file Sexual Orientation Not on file Last Filed Vital Signs Vital Sign Reading Time Taken Comments Blood Pressure 131/65 12/09/2022 12:15 PM DATA MANAGEMENT Pulse 75 12/09/2022 12:15 PM DATA MANAGEMENT Temperature 36.2 C (97.2 F) 12/09/2022 11:30 AM DATA MANAGEMENT Respiratory Rate 32 12/09/2022 12:15 PM DATA MANAGEMENT Oxygen Saturation 100% 12/09/2022 12:15 PM DATA MANAGEMENT Inhaled Oxygen Concentration - - Weight 59 kg (130 lb) 11/18/2022 9:20 AM DATA MANAGEMENT Height 152.4 cm (5') 11/18/2022 9:20 AM DATA MANAGEMENT Body Mass Index 25.39 11/18/2022 9:20 AM DATA MANAGEMENT Plan of Treatment Not on file Procedures Procedure Name Priority Date/Time Associated Diagnosis Comments SCREENING MAMMOGRAM BILATERAL W VIC Schedule Routine, Read Routine (OP Routine) 12/06/2024 12:07 PM DATA MANAGEMENT Screening mammogram, encounter for from Last 3 Months or Most Recently Relevant to Health Maintenance Results * Screening Mammogram Bilateral W Vic (12/06/2024 12:07 PM DATA MANAGEMENT) Anatomical Region Laterality Modality Breast Bilateral Mammography Impressions 12/06/2024 12:37 PM DATA MANAGEMENT BI-RADS ATLAS category (overall): 1 - Negative There is no mammographic evidence of malignancy. A 1 year screening mammogram is recommended. The patient has been or will be contacted. We recommend annual screening mammography for women at average risk of breast cancer beginning at age 40, based on guidelines of the [employer] (ACR Practice Parameter for the Performance of Screening and Diagnostic Mammography) and [employer]. For women with and elevated risk of breast cancer, please refer to the ACR Practice Parameter for specific screening recommendations. The patient will be entered into a reminder system with a target due date of 1 year for her next screening exam. Narrative 12/06/2024 12:37 PM DATA MANAGEMENT Screening Mammogram Bilateral W Vic: 12/06/24 The [...] Recently Relevant to Health Maintenance Insurance [facility]ICARE [facility] Member Subscriber Plan / Payer (Ef fective 2020-Present) Name:Yuni Seo Relation to Subscriber:Self Name:Yuni Seo Payer ID:[id number] Group ID:[id number] [id number] Type:Connectem Address: [facility] [phone] [place] [address] [facility] Member Subscriber Plan / Payer (Ef fective 2020-Present) Name:Yuni Seo Relation to Subscriber:Self Name:Yuni Seo Payer ID:[id number] Group ID:[id number] Type:COMMERCIAL Address: [facility] [id number] [phone] Care Teams Office Copy Selector Relationship Specialty Start Date End Date Amber Mehta MD [address] DEPT OPHTHALMOLOGY, [address] [address] PCP - General Family Medicine 10/10/24 Jayden Lacy MD [address] [facility] [address] [place] [address] Referring Physician Obstetrics and Gynecology 10/11/22 Baudilio Blum MD [address] [facility], [facility] [address] [place] [address] Surgeon Ophthalmology 12/09/22
--- OUTSIDE RECORDS SUMMARY | 2025-05-08 09:55 | XMS_ITS | Clinical Summary ---
Author Organization [facility] Care Team Providers Care Manager Requirements Name Role Phone Unavailable Primary Care Provider Unavailabl e Social History Tobacco Use Types Packs/Day Years Used Date Smoking Tobacco: Never Assessed Comments Unknown Sex and Gender Information Value Date Recorded Sex Assigned at Not on file Legal Sex Female 11:52 AM CDT Gender Identity Not on file Sexual Orientation Not on file Plan of Treatment Health Maintenance Due Date Last Done Comments Hepatitis C Virus (HCV) Screening 1955 TdaP Immunization 1955 Cologuard 12/12/2000 Colonoscopy 12/12/2000 Colorectal Cancer Screening 12/12/2000 Immunochemical Fecal Occult Blood 12/12/2000 Pneumococcal Immunization (50+ years) (1 of 1 - PCV) 12/12/2005 SARS-COV-2 Immunization ( season) 2024 12/30/2020, 12/02/2020 Influenza Immunization (#1) 06/09/202504/2020, 07/19/2019, 07/24/2018, Additional history exists Respiratory Syncytial Virus (RSV) Immunization (Adult) (1 - 1-dose 75+ series) 12/12/2030 Zoster Immunization Completed 10/21/2019, 9 Hepatitis B Immunization Aged Out No longer eligible based on patient's age to complete this topic Human Papillomavirus (HPV) Immunization Aged Out No longer eligible based on patient's age to complete this topic Meningococcal Immunization (ACWY) Aged Out No longer eligible based on patient's age to complete this topic Rotavirus Immunization Aged Out No lo nger eligible based on patient's age to complete this topic
--- OUTSIDE RECORDS SUMMARY | 2025-05-08 09:55 | XMS_ITS | Encounter Summary ---
Author Organization [facility] Address [address] [place] [address] Care Team Providers Care Manager Services Name Role Phone Unavailable Primary Care Provider Unavailabl e Encounter Details Date Type Department Care Team (Late st Contact Info) Description 02/14/2019 Lab Requisition [facility] Care DermPath Lab [address] [facility], [place] [phone] Cristela Cortez DO [address] [facility] 3 [place] [address] Social History Tobacco Use Types Packs/Day Years [...] AM CDT) Case Report Dermatopathology Report Case: [id number] Authorizing Provider: Cristela Cortez DO Collected: 02/13/2019 [...] The specimen consists of a shave measuring 83a7q2de. Jar 0. Specimen B: Received is one formalin filled container labeled with the patient's name and designated right breast. The specimen consists of a shave measuring 6k3y0hc. Jar 0. Specimen C: Received is one formalin filled container labeled with the patient's name and designated right forearm. The specimen consists of a shave measuring 9v3g3sh. Jar 0. 12:38 PM CDT DERMATOPATHOLOGY LABORATORY [...] characteristic determined by the Dermatopathology Laboratory at [facility], directed by Dr. Juana Keen. These tests need not be, and therefore are not, approved by the [place] Food and Drug Administration. The tests are used for clinical purposes. Billing Codes Specimen Charges Stain Charges 32047 10609 75820 1 1 1 9 12:38 PM CDT [...] - PATHOLOGY/CYTOLOGY ORDERABLES Final Result DERMATOPATHOLOGY LABORATORY [facility] - Department of Dermatology [address] [facility], 5th Floor Lab [address] [phone] documented in this encounter Visit Diagnoses Not on filedocumented in this encounter
--- OUTSIDE RECORDS SUMMARY | 2025-05-08 09:55 | XMS_ITS | Encounter Summary ---
Author Organization [facility] Address [address] [facility] [place] [address] Care Team Providers Care Wash Operator Name Role Phone Unavailable Primary Care Provider Unavailabl e Encounter Details Date Type Department Care Team (Late st Contact Info) Description 08/10/2023 Lab Requisition [facility] - D[facility] Lab [address] [facility], [facility] [place] [phone] Cristela Cortez DO [address] [facility] 3 [place] [address] Social History Tobacco Use Types Packs/Day Years [...] AM CDT) Case Report Dermatopathology Report Case: [id number] Authorizing Provider: Cristela Cortez DO Collected: 08/10/2023 09:15 AM Ordering Location: [facility] DermPath Lab Received: 08/11/2023 01:24 PM Pathologist: Vileka Sepulveda MD Specimen: Skin, right chest 3 1:06 PM [facility] DERMATOPATHOLOGY LABORATORY Final Diagnosis Specimen A. SKIN, right chest: LICHEN PLANUS-LIKE KERATOSIS (BENIGN LICHENOID KERATOSIS) (L82.1) EPIDERMAL NECROSIS SUGGESTIVE OF EXCORIATION (L98.499) 3 1:06 PM [facility] DERMATOPATHOLOGY LABORATORY at [address] [facility] Clinical History LpLK R/O NMSC 3 1:06 PM [facility] DERMATOPATHOLOGY LABORATORY Gross Description Specimen A: Received is one formalin filled container labeled with the patient's name and designated right chest. The specimen consists of a shave biopsy measuring 6x5x1 mm. Jar 0. 3 1:06 PM [facility] DERMATOPATHOLOGY LABORATORY Microscopic Description Specimen A. SKIN, right chest: The epidermis is mildly acanthotic. There is a lichenoid infiltrate with vacuolar changes of basilar keratinocytes and scattered necrotic keratinocytes. The epidermis is focally necrotic and covered with a scale-crust. There is fibrin at the base. 3 1:06 PM [facility] DERMATOPATHOLOGY LABORATORY Disclaimer An external and internal positive and negative controls are appropriate for the histochemical, immunohistochemical and immunofluorescence stain(s) in this case (if any), except where stated explicitly. The performance characteristics of the stain(s) cited in this report were developed and its performance characteristic determined by the Dermatopathology Laboratory at [facility], directed by Dr. Juana Keen. These tests need not be, and therefore are not, approved by the [place] Food and Drug Administration. The tests are used for clinical purposes. Billing Codes Specimen Charges Stain Charges 12009 1 3 1:06 PM [facility] DERMATOPATHOLOGY LABORATORY Embedded Images 3 1:06 PM [facility] DERMATOPATHOLOGY LABORATORY Pathology/Cytolo gy TISSUE SPECIMEN FROM SKIN / Unknown 08/10/2023 9:15 AM CDT 08/11/2023 1:24 PM CDT us Cristela Cortez DO LAB - PATHOLOGY/CYTOLOGY ORDERABLES Final Result DERMATOPATHOLOGY LABORATORY [facility] - Department of Dermatology [address] [phone] documented in this encounter Visit Diagnoses Not on filedocumented in this encounter
--- OUTSIDE RECORDS SUMMARY | 2025-05-08 09:55 | XMS_ITS | Encounter Summary ---
Author Organization [facility] Address [address] [facility] [place] [address] Care Team Providers Care Sales And Service Officer Name Role Phone Unavailable Primary Care Provider Unavailabl e Encounter Details Date Type Department Care Team (Late st Contact Info) Description 02/28/2023 Lab Requisition [facility] - DermPath Lab [address] [facility], [facility] [place] [address] Cristela Cortez DO [address] [facility] 3 [place] [address] Social History Tobacco Use Types Packs/Day Years [...] PM CDT) Case Report Dermatopathology Report Case: [id number] Authorizing Provider: Cristela Cortez DO Collected: 02/28/2023 04:21 PM Ordering Location: [facility] DermPath Lab Received: 03/02/2023 06:26 AM [...] of a non-oriented ellipse of skin measuring 47y22o4 mm. The epidermal surface is unremarkable. The [...] purposes. Billing Codes Specimen Charges Stain Charges 14106 22365 1 1 3 12:59 PM CDT DERMATOPATHOLOGY LABORATORY Embedded Images 3 12:59 PM CDT DERMATOPATHOLOGY LABORATORY Pathology/Cytology TISSUE SPECIMEN FROM SKIN / Unknown 02/28/2023 4:21 PM CDT 03/02/2023 6:26 AM CDT Miscellaneous samples (specimen) TISSUE SPECIMEN FROM SKIN / Unknown 02/28/2023 4:21 PM CDT 03/02/2023 6:26 AM CDT us Cristela Cortez DO LAB - PATHOLOGY/CYTOLOGY ORDERABLES Final Result DERMATOPATHOLOGY LABORATORY [facility] - Department of Dermatology [facility] Specialized Medicine [address] [place] [address], [address] [phone] documented in this encounter Visit Diagnoses Not on filedocumented in this encounter
[2025-05-08 13:09] LABS: Alanine Aminotransferase 18 U/L (6-35); Albumin Level 4.2 g/dL (3.5-5.1); Alkaline Phosphatase 83 U/L (38-126); Anion Gap 7 mmol/L (4-12); Aspartate Amino Transferase 33 U/L (14-36); Bilirubin,Total 0.9 mg/dL (0.2-1.3); Blood Urea Nitrogen 19 mg/dL (7-17); Calcium 9.5 mg/dL (8.4-10.2); Carbon Dioxide 27 mmol/L (22-30); Chloride 101 mmol/L (98-107); Estimated Glomerular Filt Rate 53; Glucose 96 mg/dL (65-110); Potassium 4.8 mmol/L (3.4-5.0); Sodium 135 mmol/L (137-145); Total Protein 7.6 g/dL (6.3-8.2)
== END 2025-05-08 09:46 | disposition home or self-care (01) ==
LOC: ANHGOSHLAB 09:47
PROVIDERS: PCP Family Medicine; Visit Provider Student in an Organized Health Care Education/Training Program
DX: E87.1 Hypo-osmolality and hyponatremia (principal); R74.8 Abnormal levels of other serum enzymes; N28.9 Disorder of kidney and ureter, unspecified
CPT/HCPCS: 36415; 80053

== ENCOUNTER 2025-07-07 11:18 | Outpatient (CLI) | payer MEDICARE, SELFPAY ==
--- NOTE | ~2025-07-07 | US_ITS ---
Examination: Ultrasound of the retroperitoneum including kidneys and bladder. Clinical History: N18.30 - Chronic kidney disease, stage 3 unspecified . Comparison: None available. Findings: Right kidney: 8 cm. Normal echogenicity. No collecting system dilatation. No shadowing calculi. Left kidney: 10 cm. Normal echogenicity. No collecting system dilatation. No shadowing calculi. Urinary bladder: No wall thickening or focal abnormality. IMPRESSION: 1. No hydronephrosis. Reviewed, dictated and finalized at location R. IMPRESSION: 1. No hydronephrosis.
== END 2025-07-07 11:19 | disposition home or self-care (01) ==
LOC: MICIMG 11:19
PROVIDERS: PCP Family Medicine; Visit Provider Family Medicine
DX: N18.30 Chronic kidney disease, stage 3 unspecified (principal)
CPT/HCPCS: 76770